=== PATIENT | male | born 1975 | race Caucasian/White ===

== ENCOUNTER 2024-09-26 10:45 | Emergency (ER) | payer OTHER ==
[~2024-09-26] VITALS: Ht 167.6 cm; Wt 72.6 kg
[2024-09-26 12:47] VITALS: BP 123/81; TEMP 98.7; O2SAT 99
== END 2024-09-26 12:47 | disposition home or self-care (01) ==
LOC: ER 11:06
DX: F17.200 Nicotine dependence, unspecified, uncomplicated (principal); R07.9 Chest pain, unspecified; Z02.89 Encounter for other administrative examinations

== ENCOUNTER 2025-01-10 07:23 | Inpatient (IN) | payer OTHER ==
[~2025-01-10] VITALS: Ht 165.1 cm; Wt 86.2 kg
[2025-01-10 07:58] LABS: BASOPHILS # (AUTO) 0.1 K/uL (0.0-0.2); BASOPHILS % (AUTO) 0.9 % (0.0-2.0); EOSINOPHILS # (AUTO) 0.2 K/uL (0.0-0.7); EOSINOPHILS % (AUTO) 2.6 % (0.0-6.0); HEMATOCRIT 42 % (39-51); HEMOGLOBIN 14.3 g/dL (13.5-17.5); LYMPHOCYTES # (AUTO) 2.2 K/uL (0.8-4.8); LYMPHOCYTES % (AUTO) 30.8 % (20.0-44.0); MEAN CORPUSCULAR HEMOGLOBIN 29 PG (26.0-33.0); MEAN CORPUSCULAR HGB CONC 34 g/dl (31.0-36.0); MEAN CORPUSCULAR VOLUME 85 fL (80-96); MONOCYTES # (AUTO) 0.4 K/uL (0.1-1.30); MONOCYTES % (AUTO) 5.6 % (2.0-12.0); NEUTROPHILS # (AUTO) 4.3 K/uL (1.8-8.9); NEUTROPHILS % (AUTO) 60.1 % (43.0-81.0); PLATELET COUNT (AUTO) 247 K/uL (150-450); RED CELL DISTRIBUTION WIDTH 12.8 % (11.5-15.0); WHITE BLOOD COUNT (AUTO) 7.2 K/uL (4.3-11.0)
[2025-01-10] MEDS ORDERED: NITROGLYCERIN PACKET 1 GM PACKET ONE (08:00)
[2025-01-10] MEDS ORDERED: ASPIRIN EC 81 MG TABLET.DR PO ONE (08:00)
[2025-01-10] MEDS ORDERED: ASPIRIN 81 MG TAB.CHEW ONE (08:01)
[2025-01-10] MEDS: NITROGLYCERIN PACKET 1 GM PACKET TD ONE (08:04)
[2025-01-10] MEDS: ASPIRIN 81 MG TAB.CHEW PO ONE (08:04)
[2025-01-10 08:05] LABS: CALCIUM, SERUM 9.2 mg/dL (8.5-10.1); CARBON DIOXIDE 28 mmol/L (21-32); CHLORIDE 105 mmol/L (98-107); CREATININE 0.9 mg/dL (0.6-1.3); GLUCOSE 88 mg/dL (74-106); POTASSIUM 3.9 mmol/L (3.5-5.1); SODIUM SERUM 138 mmol/L (136-145); UREA NITROGEN, BLOOD 15 mg/dL (7-18)
[2025-01-10 10:00] VITALS: O2SAT 99
[2025-01-10] MEDS ORDERED: ASPI-1420 PO (10:11)
[2025-01-10] MEDS: ASPIRIN 81 MG TAB.CHEW PO SCH (10:30)
[2025-01-10] MEDS: PANTOPRAZOLE 40 MG TABLET.DR PO SCH ×2 (10:30→13:22)
[2025-01-10 12:00] VITALS: BP 104/77; TEMP 97.9; O2SAT 96
[2025-01-10] MEDS: METOPROLOL TARTRATE 50 MG TABLET PO SCH (12:00)
[2025-01-10] MEDS ORDERED: Z GUARD REMEDY 4 OZ OINT TP PRN (13:00)
[2025-01-10] MEDS ORDERED: ACETAMINOPHEN 325 MG TABLET PO PRN (13:00)
[2025-01-10] MEDS ORDERED: ONDANSETRON HCL/PF 4 MG/2 ML VIAL IVP PRN (13:00)
[2025-01-10] MEDS: ENOXAPARIN SODIUM 40 MG/0.4 ML DISP.SYRIN SQ SCH (13:23)
[2025-01-10] MEDS ORDERED: IOHEXOL-350 100 ML VIAL IV ONE (14:03)
[2025-01-10] MEDS ORDERED: IV NS 0.9% 250 ML IV ONE (14:03)
[2025-01-10] MEDS ORDERED: CT SWABBABLE VALVE TRANS SET 1 EA INFUS.SET MC ONE (14:03)
[2025-01-10 16:00] VITALS: BP 112/81; TEMP 97.7; O2SAT 99
[2025-01-10 20:00] VITALS: BP 130/88; TEMP 98.1; O2SAT 99
[2025-01-11] VITALS: BP 113/92; TEMP 98.2; O2SAT 99
[2025-01-11 04:00] VITALS: BP 113/73; TEMP 98.4; O2SAT 98
[2025-01-11] MEDS ORDERED: ASPIRIN EC 81 MG TABLET.DR PO SCH (09:00)
[2025-01-11] MEDS ORDERED: ATOR20TA PO (13:39)
[2025-01-11 17:31] VITALS: BP 122/95
== END 2025-01-11 19:30 | disposition home or self-care (01) | DRG 206 ==
LOC: ER 07:30 → TELE 11:16
PROVIDERS: ADMIT Nurse Practitioner Acute Care; ATTEND Nurse Practitioner Acute Care
DX: M94.0 Chondrocostal junction syndrome [Tietze] (principal); I10 Essential (primary) hypertension; I25.10 Atherosclerotic heart disease of native coronary artery without angina pectoris; Z72.0 Tobacco use
CPT/HCPCS: 36415; 71045-TC; 80048-TC; 84484-TC; 85025-TC; 93307-TC; G0378; J1650; J7050; Q9967

== ENCOUNTER 2025-01-27 22:27 | Emergency (ER) | payer OTHER ==
[~2025-01-27] VITALS: Ht 167.6 cm; Wt 83.9 kg
[~2025-01-27 22:27] MED LIST: ASPI-1420 PO; ATOR20TA PO
[2025-01-27 23:13] VITALS: BP 124/84; TEMP 98; O2SAT 99
== END 2025-01-27 23:36 | disposition left against medical advice (07) ==
LOC: ER 22:29
DX: R07.9 Chest pain, unspecified (principal); F17.200 Nicotine dependence, unspecified, uncomplicated; Z79.82 Long term (current) use of aspirin; Z79.899 Other long term (current) drug therapy; Z53.21 Procedure and treatment not carried out due to patient leaving prior to being seen by health care provider